=== PATIENT | male | born 1975 | race Two or more races ===

== ENCOUNTER 2023-11-21 16:30 | Emergency (ER) | payer MEDICAID ==
[~2023-11-21] VITALS: Ht 175.3 cm; Wt 86.1 kg
[2023-11-21 17:06] VITALS: TEMP 98.3
[2023-11-21] MEDS: cloNIDine HCL 0.1 MG TAB PO ONE (17:15)
[2023-11-21 17:49] VITALS: BP 146/96; PULSE 85; RESP 16; O2SAT 100
== END 2023-11-21 17:59 | disposition home or self-care (01) ==
LOC: ER 16:30
DX: I10 Essential (primary) hypertension (principal); E11.9 Type 2 diabetes mellitus without complications; E78.5 Hyperlipidemia, unspecified; F41.9 Anxiety disorder, unspecified